=== PATIENT | male | born 1975 | race Two or more races ===

== ENCOUNTER 2016-11-16 15:31 | Emergency (ER) | payer OTHER, BC ==
[~2016-11-16] VITALS: Ht 175.3 cm; Wt 105.2 kg
[2016-11-16] MEDS ORDERED: MORPHINE SULFATE 4 MG/ML DISP.SYRIN. IV/SQ PRN (16:15)
[2016-11-16] MEDS ORDERED: ONDANSETRON PF 4 MG/2 ML VIAL. IV ONE (16:30)
[2016-11-16] MEDS ORDERED: IV NORMAL SALINE 1000ML BAG 1,000 ML IV SCH (16:30)
--- NOTE | 2016-11-16 16:42 | RAD ---
Indication pain associated with a fall. AP oblique and lateral views of the left knee were obtained. There is a slightly comminuted mildly distracted fracture involving the distal fibular diaphysis. Soft tissue swelling over the ankle is additionally noted. IMPRESSION: Traumatic slightly comminuted fracture distal fibular diaphysis
--- NOTE | 2016-11-16 16:46 | RAD ---
Indication fall, pain. AP and lateral views of the left tibia and fibula were obtained. There is a comminuted slightly distracted traumatic fracture involving the distal fibular diaphysis.
[2016-11-16 17:19] VITALS: BP 161/98
[2016-11-16] MEDS ORDERED: OXYC-323 PO (17:28)
[2016-11-16] MEDS ORDERED: NAPR250T2 PO (17:28)
[2016-11-16] MEDS ORDERED: OXYCODONE/APAP 10/325 TABLET. PO ONE (17:30)
--- NOTE | 2016-11-17 01:05 | ED.ADGEN ---
Past Medical History Past Medical History: Other Additional Past Medical Histor: EPILEPSY Past Surgical History: Other Additional Past Surgical Histo: LYMPH NODE REMOVED Alcohol Use: Rarely Drug Use: None Adult General Chief Complaint Chief Complaint: LOWEREXTREMITY INJURY HPI HPI Patient is a 41 year old man, history of seizure disorder, which is controlled with medications, and hypertension, also medically managed, who presents to the emergency department with complaint of left lower extremity pain. Patient states that he was at his place of employment, when he caught the edge of his heel on the back of a truck will jumping off of the truck, and fell forward landing on his hands and knees, and felt his left ankle twist. He states that he heard a pop at that time. Patient noted immediate swelling of the pain, was unable to weight-bear, is transferred to the ED via ambulance. He does not take any blood thinners, denies striking his head or neck, denies any nausea or vomiting, any chest pain or shortness breath, any pain in the other extremities or other injuries. He did take his blood pressure medication today, he did miss a dose of his seizure medication. His last meal was at 1:30 PM, he ate pretzels for lunch. Review of Systems Review of Systems Constitutional: Denies fever or chills. [] Eyes: Denies change in visual acuity. [] HENT: Denies nasal congestion or sore throat. [] Respiratory: Denies cough or shortness of breath. [] Cardiovascular: Denies chest pain or edema. [] GI: Denies abdominal pain, nausea, vomiting, bloody stools or diarrhea. [] : Denies dysuria. [] Musculoskeletal: Denies back pain, complaining of pain in the left ankle. Integument: Denies rash. [] Neurologic: Denies headache, focal weakness or sensory changes. [] Endocrine: Denies polyuria or polydipsia. [] Lymphatic: Denies swollen glands. [] Psychiatric: Denies depression or anxiety. [] Current Medications Current Medications Current Medications Medications (Trade) Dose Ordered Sig/Tono Start Time Stop Time Status Last Admin Dose Admin Morphine Sulfate 4 mg PRN Q15MIN PRN 11/16/16 16:15 11/16/16 17:58 DC 11/16/16 16:32 4 MG Ondansetron HCl (Zofran) 4 mg 1X ONCE 11/16/16 16:30 2/9/17 16:31 DC 11/16/16 16:31 4 MG Oxycodone/ Acetaminophen (Percocet 10/325) 1 tab 1X ONCE 11/16/16 17:30 11/16/16 17:31 DC 11/16/16 17:21 1 TAB Sodium Chloride (Iv Sodium Chloride 0.9% 1000ml Bag) 1,000 ml @ 100 mls/hr Q10H 11/16/16 16:30 11/16/16 17:58 DC 11/16/16 16:31 100 MLS/HR Allergies Allergies Allergies Coded Allergies Type Severity Reaction Last Updated Verified No Known Drug Allergies 11/16/16 No Physical Exam Physical Exam Constitutional: Well developed, well nourished, no acute distress, non-toxic appearance. [] HENT: Normocephalic, atraumatic, bilateral external ears normal, oropharynx moist, no oral exudates, nose normal. [] Eyes: PERRLA, EOMI, conjunctiva normal, no discharge. [] Neck: Normal range of motion, no tenderness, supple, no stridor. [] Cardiovascular:Heart rate regular rhythm, no murmur, S1, S2, rubs or gallops. [] Lungs & Thorax: Bilateral breath sounds clear to auscultation, no wheezing, rhonchi, rales. No chest wall tenderness or crepitus. [] Abdomen: Bowel sounds normal, soft, no tenderness, no rebound, rigidity, no guarding, no masses, no pulsatile masses. [] Skin: Warm, dry, no erythema, no rash. [] Back: No tenderness, no CVA tenderness. [] Extremities: Patient with tenderness and swelling of the left lower extremity, no tenderness in the knee or fibular head region, swelling around the lateral malleolus and upper ankle noted extending into the mid shaft of the fibula, no evidence of an open fracture, obvious deformity stated, pulses are 3+ and equal bilaterally, small abrasion noted on the bilateral knees, no tenderness in this region, no cyanosis, no clubbing, no edema. [] Neurologic: Alert and oriented X 3, normal motor function, normal sensory function, no focal deficits noted. [] Psychologic: Affect normal, judgement normal, mood normal. [] Current Patient Data Vital Signs Vital Signs Date Time Temp Pulse Resp B/P Pulse Ox O2 Delivery O2 Flow Rate FiO2 11/16/16 17:21 18 99 Room Air 11/16/16 17:19 84 161/98 11/16/16 15:31 97.7 97.7 EKG EKG ECG: Heart rate 90 bpm, sinus rhythm, no ectopy. As interpreted by me. [] Radiology/Procedures Radiology/Procedures [] [place] [id number] IMAGING REPORT Signed PATIENT: AMARIS THOMAS ACCOUNT: [id number] : 1975 LOCATION: ER AGE: 41 SEX: M EXAM STATUS: REG ER ORD. PHYSICIAN: MONSERRAT SIMPSON DO REASON: Fall/pain PROCEDURE: ANKLE LEFT 3V Indication pain associated with a fall. AP oblique and lateral views of the left knee were obtained. There is a slightly comminuted mildly distracted fracture involving the distal fibular diaphysis. Soft tissue swelling over the ankle is additionally noted. IMPRESSION: Traumatic slightly comminuted fracture distal fibular diaphysis DICTATED and SIGNED BY: JOSE WINTERS MD DATE: 11/16/169 CC: MONSERRAT SIMPSON DO; JENNIFER SHEEHAN ~ Impressions: [address] [address] IMAGING REPORT Signed PATIENT: AMARIS THOMAS ACCOUNT: [id number] : 1975 LOCATION: ER AGE: 41 SEX: M EXAM STATUS: REG ER ORD. PHYSICIAN: MONSERRAT SIMPSON DO REASON: Fall/pain PROCEDURE: TIBIA FIBULA LEFT Indication fall, pain. AP and lateral views of the left tibia and fibula were obtained. There is a comminuted slightly distracted traumatic fracture involving the distal fibular diaphysis. DICTATED and SIGNED BY: JOSE WINTERS MD DATE: 11/16/16 164 CC: MONSERRAT SIMPSON DO; JENNIFER SHEEHAN ~ Course & Med Decision Making Course & Med Decision Making Pertinent Labs and Imaging studies reviewed. (See chart for details) X-ray reveals a comminuted slightly distracted traumatic fracture involving the distal fibular diaphysis. Findings discussed with patient, sugar tong splint applied in the ED without issue. Patient is resting more comfortably receiving pain medication in the ED. Findings as above discussed with Dr. Boswell of orthopedics, at this time as the patient has eaten several hours ago, he is not a candidate for surgery tonight, will require open reduction internal fixation. Based on the surgical schedule, patient be seen in the office by Dr. Boswell tomorrow, with likely surgical intervention on Sunday. I did discuss this with patient and at bedside, they're agreeable with this plan. Patient received oral pain medication in the ED, crutch walking instruction, was crutch walking in the ED without issue. Patient discharged home with clear and detailed return instructions, contact information for Dr. Boswell's office, prescriptions for Percocet and naproxen, plan as above. Dragon Disclaimer Dragon Disclaimer This electronic medical record was generated, in whole or in part, using a voice recognition dictation system. Departure Impression: Primary Impression: Fibula fracture Disposition: HOME, SELF-CARE Condition: IMPROVED Scripts Oxycodone/Apap 5-325 (Percocet 5-325 Mg Tablet)1 Each Tablet1-2 Tab PO Q4-6HRS PRN PAIN #14 TAB Prov:MONSERRAT SIMPSON DO 11/16/16 Naproxen 250 Mg [id number] Mg PO BID PRN PAIN #10 Prov:MONSERRAT SIMPSON DO 11/16/16 Problem Qualifiers Primary Impression: Fibula fracture Encounter type: initial encounter Fibula location: shaft Fracture type: closed Fracture morphology: comminuted Fracture alignment: displaced Laterality: left Qualified Code: S82.452A - Displaced comminuted fracture of shaft of left fibula, initial encounter for closed fracture MONSERRAT SIMPSON DO Nov 17, 2016 01:06
[2016-11-17] MEDS ORDERED: LAMO150T3 PO (16:33)
[2016-11-17] MEDS ORDERED: AMLO5TAB2 PO (16:33)
[2016-11-17] MEDS ORDERED: LOSA100T6 PO (16:33)
[2016-11-18] MEDS ORDERED: OXYC-244 PO (09:59)
== END 2016-11-16 17:42 | disposition home or self-care (01) ==
LOC: ER 15:48
DX: S82.452A Displaced comminuted fracture of shaft of left fibula, initial encounter for closed fracture (principal); G40.909 Epilepsy, unspecified, not intractable, without status epilepticus; I10 Essential (primary) hypertension; W23.0XXA Caught, crushed, jammed, or pinched between moving objects, initial encounter; Y93.89 Activity, other specified; Y99.8 Other external cause status; Y92.69 Other specified industrial and construction area as the place of occurrence of the external cause
CPT/HCPCS: 73590; 73610; 96361; 96374; 96375; 99284; J2270; J2405; J7030

== ENCOUNTER → 2016-11-18 | Day surgery (SDC) | payer OTHER, BC ==
[~2016-11-18] VITALS: Ht 175.3 cm; Wt 48.1 kg
[~2016-11-18] MED LIST: AMLO5TAB2 PO; BUPIVACAINE MPF 0.5% 30 ML VIAL. ONE; CEFAZOLIN 2GM PREMIX 50 ML IV ONE; DEXAMETHASONE SOD PHOS 20 MG/5 ML VIAL. ONE; EPHEDRINE PF IN SALINE 50 MG/5 ML DISP.SYRIN. IV ONE; FENTANYL PF 100 MCG/2 ML VIAL. IV PRN; FENTANYL PF 100 MCG/2 ML VIAL. ONE; HYDROMORPHONE 2 MG/ML VIAL. IV PRN; IV RINGERS,LACTATED 1000ML 1,000 ML IV SCH; KETOROLAC 60 MG/2 ML SYRINGE FOR OR. ONE; LAMO150T3 PO; LIDOCAINE 1% 1 ML SYRINGE. ID PRN; LIDOCAINE 2% 100 MG/5 ML DISP.SYRIN. ONE; LOSA100T6 PO; MIDAZOLAM HCL 2 MG/2 ML VIAL. ONE; MORPHINE SULFATE 2 MG/ML DISP.SYRIN. IV PRN; NAPR250T2 PO; ONDANSETRON PF 4 MG/2 ML VIAL. IV PRN; ONDANSETRON PF 4 MG/2 ML VIAL. ONE; OXYC-244 PO; OXYC-323 PO; OXYCODONE/APAP 7.5/325 TABLET. PO PRN; PHENYLEPHRINE in 0.9% NACL PF 1 MG/10 ML DISP.SYRIN. IV ONE; PROCHLORPERAZINE 10 MG/2 ML VIAL. IV PRN; PROPOFOL 20 ML IV ONE; SEVOFLURANE 61 TO 120 MINUTES. IH ONE
--- NOTE | 2016-11-18 09:56 | DISCH ---
DISCHARGE INSTRUCTIONS Condition on Discharge Condition on Discharge: Stable Activity After Discharge Activity Instructions for Disc: Other, see below Other activity instructions: nonweightbearing with crutches left leg Diet after Discharge Diet after Discharge: Regular Wound Incision Care Wound/Incision Care: Ice to area for comfort, Keep wound elevated, Do not change dressing Checks after Discharge DC Comment: on return to work needs seated work only Contacting the DRTc after DC Call your doctor for: Concerns you may have Follow-Up Follow up with: Dr. Boswell approximately 10 days Treatment/Equipment after DC Adaptive Equipment Issued: MARISOL Best MD Nov 18, 2016 09:56
--- NOTE | 2016-11-18 11:31 | PDOC ---
BRIEF OPERATIVE NOTE Date: Nov 18, 2016 Pre-Op Diagnosis distal fibula fx, lateral talar shift and syndesmotic disruption Post-Op Diagnosis same Procedure Performed ORIF left distal fibula fx with syndesmotic fixation Surgeon Andreia Anesthesia Type: General Blood Loss 10cc Findings above Complications none MARISOL WATERMAN MD Nov 18, 2016 11:31
[2016-11-18] MEDS: FENTANYL PF 100 MCG/2 ML VIAL. IV PRN ×2 (11:35→11:49)
[2016-11-18 12:00] VITALS: BP 145/96
--- NOTE | 2016-11-19 05:43 | OP ---
DATE OF SURGERY: 11/18/2016 PREOPERATIVE DIAGNOSIS: Left distal fibula fracture with syndesmotic disruption. POSTOPERATIVE DIAGNOSIS: Left distal fibula fracture with syndesmotic disruption. PROCEDURE: Open reduction and internal fixation, left distal fibula fracture with syndesmotic fixation. SURGEON: Ivan Boswell M.D. ANESTHESIA: General. ESTIMATED BLOOD LOSS: 10 mL. TOURNIQUET TIME: 45 minutes. COMPLICATIONS: None. OPERATIVE INDICATIONS: The patient is a 41-year-old male who injured his left ankle at [place] at work when he caught his right lower extremity on a pickup truck and twisted the left ankle presented to [facility] where he was found to have distal fibula fracture with lateral talar tilt. I then saw him in the office and went over with him the rationale for operative treatment. The risks, benefits, postoperative course of the procedure including the possibility of infection, nonhealing, nerve or blood vessel damage, medical or other anesthetic complications among others and covered with him the rationale again covering the anatomy of the ankle and the talus that shifted over and the syndesmotic disruption and the treatment of it. I indicated that even after weightbearing and healing that we would typically bring him back after a period of probably 3 to 3-1/2 months and removed the syndesmotic screw to allow the bones to move normally, which would require an additional procedure. All his questions were answered. Consent was obtained and he agrees to proceed with operative evaluation and treatment. OPERATIVE TECHNIQUE: The patient was identified, procedure verified, patient placed in the supine position on operating table. After adequate amounts of general endotracheal anesthesia were administered, the left lower extremity was prepped and draped in standard sterile fashion with a thigh tourniquet and after timeout was performed, the patient and procedure identified and verified, left lower extremity was exsanguinated by Esmarch bandage. Tourniquet inflated to 350 mmHg and a lateral incision was made subperiosteally to the distal fibula and reduction of the fracture was accomplished and a Charles 8-hole distal fibular locking plate was then placed with a single bicortical screw for purchase and distal locking screws were then placed 2.7 on the distal portion of the fibula and a syndesmotic screw was placed to restore the talar alignment and adequate syndesmotic fixation and placement. Nonlocking screws were then placed in the remainder of the fibular shaft with excellent fixation having been obtained and fixation and alignment checked again under multiple fluoroscopic views thorough irrigation carried out with normal saline solution. Closure accomplished with buried Vicryl suture, skin anisa. Total of 20 mL of 0.5% plain Marcaine were placed subcutaneously. Sterile dressings followed by a posterior splint were obtained. Tourniquet was deflated after a total tourniquet time of approximately 45 minutes. The patient was extubated and transferred to postop holding in stable condition having tolerated the procedure well. IVAN BOSWELL MD DR: KYRA/khoa JOB#: [id number] / [id number]
== END | disposition home or self-care (01) ==
LOC: SURG 07:19
PROVIDERS: ATTEND Orthopaedic Surgery
DX: S82.832A Other fracture of upper and lower end of left fibula, initial encounter for closed fracture (principal); I10 Essential (primary) hypertension; X58.XXXA Exposure to other specified factors, initial encounter; Y93.9 Activity, unspecified; Y92.9 Unspecified place or not applicable
CPT/HCPCS: 27792; 76000; J0690; J1100; J1885; J2250; J2370; J2405; J2704; J3010; J3490

== ENCOUNTER 2017-01-26 07:24 | Day surgery (SDC) | payer OTHER ==
[~2017-01-26] VITALS: Ht 175.3 cm; Wt 106.1 kg
[~2017-01-26 07:24] MED LIST changes: -BUPIVACAINE MPF 0.5% 30 ML VIAL. ONE; -CEFAZOLIN 2GM PREMIX 50 ML IV ONE; +CEFAZOLIN 2GM PREMIX 50 ML IV PRN; -DEXAMETHASONE SOD PHOS 20 MG/5 ML VIAL. ONE; -EPHEDRINE PF IN SALINE 50 MG/5 ML DISP.SYRIN. IV ONE; -FENTANYL PF 100 MCG/2 ML VIAL. ONE; -KETOROLAC 60 MG/2 ML SYRINGE FOR OR. ONE; -LIDOCAINE 2% 100 MG/5 ML DISP.SYRIN. ONE; -MIDAZOLAM HCL 2 MG/2 ML VIAL. ONE; -ONDANSETRON PF 4 MG/2 ML VIAL. ONE; -OXYCODONE/APAP 7.5/325 TABLET. PO PRN; -PHENYLEPHRINE in 0.9% NACL PF 1 MG/10 ML DISP.SYRIN. IV ONE; -PROPOFOL 20 ML IV ONE; -SEVOFLURANE 61 TO 120 MINUTES. IH ONE
[2017-01-26] MEDS ORDERED: LIDOCAINE 2% 100 MG/5 ML SYRINGE. ONE (08:18)
[2017-01-26] MEDS ORDERED: PROPOFOL 20 ML IV ONE (08:18)
[2017-01-26] MEDS ORDERED: DEXAMETHASONE SOD PHOS 20 MG/5 ML VIAL. ONE (08:18)
[2017-01-26] MEDS ORDERED: ONDANSETRON PF 4 MG/2 ML VIAL. ONE (08:18)
[2017-01-26] MEDS ORDERED: SEVOFLURANE 61 TO 120 MINUTES. IH ONE (08:18)
[2017-01-26] MEDS ORDERED: FENTANYL PF 100 MCG/2 ML VIAL. ONE (08:18)
--- NOTE | 2017-01-26 09:06 | DISCH ---
DISCHARGE INSTRUCTIONS Condition on Discharge Condition on Discharge: Stable Activity After Discharge Activity Instructions for Disc: Activity as tolerated Other activity instructions: May return to light duty work 01/29/17 Diet after Discharge Diet after Discharge: Regular Wound Incision Care Wound/Incision Care: Change dressing Other wound/incision instructi: remove dressing 2 days may then shower Contacting the DRTc after DC Call your doctor for: Concerns you may have Follow-Up Follow up with: Andreia 7-10 days MARISOL WATERMAN MD Jan 26, 2017 09:06
[2017-01-26] MEDS ORDERED: HYDR-965 PO (09:08)
[2017-01-26] MEDS ORDERED: PHENYLEPHRINE in 0.9% NACL PF 1 MG/10 ML DISP.SYRIN. IV ONE (09:20)
[2017-01-26] MEDS ORDERED: BUPIVACAINE MPF 0.5% 30 ML VIAL. ONE (09:39)
--- NOTE | 2017-01-26 10:15 | PDOC ---
BRIEF OPERATIVE NOTE Date: Jan 26, 2017 Pre-Op Diagnosis retained hardware s/p ORIF left ankle Post-Op Diagnosis same Procedure Performed removal syndesmotic screw left ankle Surgeon Andreia Anesthesia Type: General Blood Loss 2cc Specimens Obtained screw Findings above Complications none MARISOL WATERMAN MD Jan 26, 2017 10:15
[2017-01-26] MEDS ORDERED: HYDROCODONE/APAP 7.5/325MG TABLET. PO ONE (10:30)
[2017-01-26 10:56] VITALS: BP 138/64
--- NOTE | 2017-01-29 11:35 | OP ---
DATE OF SURGERY: 01/26/2017 PREOPERATIVE DIAGNOSIS: Retained syndesmotic screw, left ankle, status post open reduction and internal fixation of a distal fibular fracture with syndesmotic fixation. POSTOPERATIVE DIAGNOSIS: Retained syndesmotic screw, left ankle, status post open reduction and internal fixation of a distal fibular fracture with syndesmotic fixation. PROCEDURE: Removal of syndesmotic screw. SURGEON: Ivan Boswell M.D. ANESTHESIA: General. ESTIMATED BLOOD LOSS: Less than 5 mL. COMPLICATIONS: None. 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 I had gone over with him the risks, benefits, postoperative course of the procedure including possibility of infection, medical or other anesthetic complications and the fact that they were not expected to be activity restrictions post-screw removal. All his questions were answered. Consent was obtained. He agrees to proceed with operative evaluation and treatment. OPERATIVE TECHNIQUE: The patient was identified, procedure verified, patient placed in the supine position on the operating table. After adequate amounts of general anesthesia were administered, the left lower extremity was prepped and draped in standard sterile fashion and timeout was performed. After timeout was performed, the patient and procedure identified and verified. Syndesmotic screw location was localized under radiographic guidance. Incision was made over the area, subperiosteal dissection was carried out and the syndesmotic screw was removed whole, thorough irrigation carried out with normal saline solution. Closure with buried Vicryl sutures, subcuticular Monocryl, Steri-Strips, and Mastisol. Sterile dressings were applied. The patient was extubated and transferred to postop holding in stable condition having tolerated the procedure well. IVAN BOSWELL MD DR: KYRA/khoa JOB#: [id number] / [id number]
== END 2017-01-26 10:56 | disposition home or self-care (01) ==
LOC: SURG 07:24
PROVIDERS: ATTEND Orthopaedic Surgery
DX: Z47.2 Encounter for removal of internal fixation device (principal); Z96.662 Presence of left artificial ankle joint; I10 Essential (primary) hypertension; Z72.89 Other problems related to lifestyle; F17.200 Nicotine dependence, unspecified, uncomplicated
CPT/HCPCS: 20680; 76000; J0690; J1100; J2370; J2405; J2704; J3010; J3490